=== PATIENT | male | born 1990 | race Caucasian/White ===

== ENCOUNTER 2022-05-12 11:25 | Outpatient (CLI) | payer BC, SELFPAY ==
[2022-05-12 18:31] LABS: Cholesterol* 120 mg/dL (90-199)
[2022-05-12 18:32] LABS: HDL Cholesterol* 45 mg/dL (>=40); LDL Cholesterol Calculated 61 mg/dL (<100); Triglycerides* 72 mg/dL (40-149)
== END 2022-05-12 11:26 | disposition home or self-care (01) ==
LOC: LONREF 11:26
PROVIDERS: PCP Family Medicine; Visit Provider Family Medicine
DX: Z13.6 Encounter for screening for cardiovascular disorders (principal)
CPT/HCPCS: 80061